=== PATIENT | female | born 1990 | race Caucasian/White ===

== ENCOUNTER 2022-06-05 09:32 | Emergency (ER) | payer OTHER ==
--- NOTE | 2022-06-05 10:16 | ERPHSYRPT ---
- History of Present Illness Time Seen by Provider: 06/05/22 10:10 Source: patient, family Exam Limitations: no limitations Patient Subjective Stated Complaint: Dizziness Triage Nursing Assessment: Patient ambulated back to ED and transferred self to bed. Patient A+O x3. Patient's skin pink, warm and dry. Patient states 45 min prior to coming to ED she was in the shower with her and felt fine. Patient states she looked up at her and started seeing flashes of white lights and got light headed and fell into his arms. Patient's states patient turned white and passed out into his arms and evacuated her bowels and gagged. stated when patient came to her speech was slurred and she was weaker on her left side. Patient complains of intermittent headache 08/29. Patient currently denies dizziness, N/V. Physician History: pt was in shower 10 minutes and then fainted - no vertigo or spinning, defecated after fainting. no seizure activity noted by who was right there. Did not hit head but her head feels funny and she initially had slurred speech but none now, and still feels foggy. Normal mental status in ER. No pronator drift. Normal facial expression, visual kerr intact fundi benign. No abd pain slight nausea. no vomiting. Abd soft nontender without mass or peritoneal sgns. 1 week late on period but this happens a lot for her. Chest clear . EKG nonspecific. No arrythmia - computer reported one PVC. Full ROM all extremities without pain. No sign of external trauma. No recent hosp or surgies, no Hx cancer, No blood thinners, No prior DVT or PE. No homronal therapy. Percs out. Additional independent Hx from who also brought home meds and relates recently restarted buspirone after one month off. Pt reports could be since is trying. No bleeding or Discharge. PMHx vertigo, but this was not like this at all. discussed risk/benefit of CT head and family and pt wish to proceed. Witnessed: by family Prior Episodes: single episode today Timing/Duration: today, sudden Precipitating Factors: blurred vision, confusion, lightheadedness, nausea Context: standing Loss of Consciousness: brief (seconds), dazed Charcter of event(s): collapsed, became unresponsive, incontinent urine/stool Allergies/Adverse Reactions: vancomycin Allergy (Severe, Verified 06/05/22 09:40) Itching severe headache Home Medications: Methylphenidate HCl [Concerta] 18 mg PO DAILY 05/05/15 [History] Buspirone HCl [Buspar] 10 mg PO QID 12/19/20 [History] Ergocalciferol (Vitamin D2) [Vitamin D] 50,000 unit PO WEEKLY 12/19/20 [History] PARoxetine HCL [Paroxetine HCl] 40 mg PO DAILY 12/19/20 [History] Spironolactone 100 mg PO DAILY 12/19/20 [History] clonazePAM [Klonopin] 1 mg PO DAILY PRN 12/19/20 [History] Hx Tetanus, Diphtheria Vaccination/Date Given: Yes Hx Influenza Vaccination/Date Given: Yes Hx Pneumococcal Vaccination/Date Given: No Immunizations Up to Date: Yes Travel Risk - International Travel Have you traveled outside of the country in past 3 weeks: No - Coronavirus Screening Are you exhibiting any of the following symptoms?: No Close contact with a COVID-19 positive Pt in past 14-21 Days: No - Vaccine Status Have you recieved a Covid-19 vaccination: Yes 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 - Vaccination Dates Date of 2cond Vaccination (if applicable): na - Past Medical History Pertinent Past Medical History: Yes Neurological History: No Pertinent History ENT History: No Pertinent History Cardiac History: No Pertinent History Respiratory History: No Pertinent History Endocrine Medical History: No Pertinent History Musculoskeletal History: No Pertinent History GI Medical History: Gallbladder Disease History: Other Psycho-Social History: Anxiety, Depression Female Reproductive Disorders: No Pertinent History Other Medical History: polycystic ovarian syndrome - Past Surgical History Past Surgical History: Yes Neuro Surgical History: No Pertinent History Cardiac: No Pertinent History Respiratory: No Pertinent History Gastrointestinal: Cholecystectomy Genitourinary: No Pertinent History Musculoskeletal: No Pertinent History Female Surgical History: Other Other Surgical History: breast reduction,sebaceous cystectomy of neck - Social History Smoking Status: Never smoker Exposure to second hand smoke: No Drug Use: none Patient Lives Alone: No - Female History Hx Last Menstrual Period: April Hx Now: No - Review of Systems Constitutional: No Fever, No Chills Eyes: No Symptoms Ears, Nose, & Throat: No Symptoms Respiratory: No Cough, No Dyspnea Cardiac: No Chest Pain, No Edema, No Syncope Abdominal/Gastrointestinal: No Abdominal Pain, No Nausea, No Vomiting, No Diarrhea Genitourinary Symptoms: No Dysuria Musculoskeletal: No Back Pain, No Neck Pain Skin: No Rash Neurological: Dizziness, Headache, No Focal Weakness, No Sensory Changes Psychological: No Symptoms Endocrine: No Symptoms Hematologic/Lymphatic: No Symptoms Immunological/Allergic: No Symptoms All Other Systems: Reviewed and Negative Physical Exam - Nursing Vital Signs Nursing Vital Signs: Initial Vital Signs Temperature 97.6 F 06/05/22 09:46 Pulse Rate 86 06/05/22 09:46 Respiratory Rate 18 06/05/22 09:46 Blood Pressure 136/98 06/05/22 09:46 O2 Sat by Pulse Oximetry 98 06/05/22 09:46 Pain Scale Pain Intensity 0 - Temperance Coma Scale Best Eye Response (Malcom): (4) open spontaneously Best Verbal Response (Malcom): (5) oriented Best Motor Response (Malcom): (6) obeys commands Malcom Total: 15 - Physical Exam General Appearance: no apparent distress, alert Eye Exam: bilateral eye: normal inspection, PERRL, EOMI Ears, Nose, Throat Exam: normal ENT inspection, TMs normal, pharynx normal, moist mucous membranes Neck Exam: normal inspection, non-tender, supple, full range of motion, No meningismus, No Brudzinski, No Kernig's, No JVD Respiratory: normal breath sounds, lungs clear, No chest tenderness, No respiratory distress Cardiovascular: regular rate/rhythm, capillary refill <2 sec, No murmur, No pulse deficit Gastrointestinal: soft, No tenderness, No distention, No mass Pelvic Exam: deferred Rectal Exam: deferred Back Exam: normal inspection, normal range of motion, No CVA tenderness, No vertebral tenderness Extremity Exam: normal inspection, normal range of motion, pelvis stable, No tenderness Peripheral Pulses: carotid (R): 2+, carotid (L): 2+, femoral (R): 2+, femoral (L): 2+, dorsalis-pedis (R): 2+, dorsalis-pedis (L): 2+ Mental Status: alert, oriented x 3, 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 Exam: normal speech, PERRL, No facial droop Coordination/Gait: normal finger to nose, normal gait Motor/Sensory: no motor deficit, no sensory deficit, no pronator drift DTR: bicep (R): 2+, bicep (L): 2+, tricep (R): 2+, tricep (L): 2+, knee (R): 2+, knee (L): 2+, ankle (R): 2+, ankle (L): 2+ Skin Exam: normal color, warm, dry, No rash SpO2 Interpretation: normal SpO2: 98 O2 Delivery: Room Air - Course Nursing assessment & vital signs reviewed: Yes EKG Interpreted by Me: NORMAL AXIS (PVC), NORMAL INTERVALS, Non-specific ST Changes - CT Exams Head CT Interpretation: Tele-radiologist Report, No/Intracranial Hemorrhag Ordered Tests: Active Orders 24 hr Category Date Time Status Unix Architect STAT Care 06/05/22 10:27 Active EKG-ER Only STAT Care 06/05/22 10:25 Active IV Insertion STAT Care 06/05/22 10:25 Active Orthostatic Vital Signs STAT Care 06/05/22 10:25 Active POCT Glucose Check STAT Care 06/05/22 10:25 Active HEAD WITHOUT CONTRAST [CT] Stat Exams 06/05/22 10:26 Taken CBC W DIFF Stat Lab 06/05/22 10:04 Completed CMP Stat Lab 06/05/22 10:04 Completed CULTURE,URINE Stat Lab 06/05/22 10:29 Received HCG QUALITATIVE,SERUM Stat Lab 06/05/22 10:04 Completed Lactic Acid Stat Lab 06/05/22 10:28 Completed TROPONIN Q4H Lab 06/05/22 10:04 Completed TROPONIN Q4H Lab 06/05/22 14:45 Ordered TROPONIN Q4H Lab 06/05/22 18:45 Ordered UA W/RFX UR CULTURE Stat Lab 06/05/22 10:29 Completed Medication Summary Discontinued Medications Generic Name Dose Route Start Last Admin Trade Name Freq PRN Reason Stop Dose Admin Sodium Chloride 1,000 mls @ 999 mls/hr 06/05/22 10:25 06/05/22 12:02 Sodium Chloride 0.9% 1000 Ml IV 06/05/22 11:25 Infused .Q1H1M STA Infusion Sodium Chloride Confirm 06/05/22 10:42 Sodium Chloride 0.9% 1000 Ml Administered 06/05/22 10:43 Dose 1,000 mls @ ud .ROUTE .STK-MED ONE Lab/Rad Data: Laboratory Result Diagrams 06/05/22 10:04 06/05/22 10:04 Laboratory Results 06/05/22 06/05/22 06/05/22 Range/Units 10:29 10:28 10:04 WBC (4.0-10.5) x10^3/uL RBC (4.1-5.4) x10^6/uL Hgb (12.0-16.0) g/dL Hct (35-47) % MCV (78-100) fL MCH (26-32) pg MCHC (32-36) g/dL RDW (11.5-14.0) % Plt Count (150-450) x10^3/uL MPV (7.5-11.0) fL Gran % (36.0-66.0) % Immature Gran % (Auto) (0.00-0.4) % Nucleat RBC Rel Count (0.00-0.1) % Eos # (Auto) (0-0.5) x10^3/uL Immature Gran # (Auto) (0.00-0.03) x10^3u/L Absolute Lymphs (auto) (1.0-4.6) x10^3/uL Absolute Monos (auto) (0.0-1.3) x10^3/uL Absolute Nucleated RBC (0.00-0.01) x10^3u/L Lymphocytes % (24.0-44.0) % Monocytes % (0.0-12.0) % Eosinophils % (0.00-5.0) % Basophils % (0.0-0.4) % Absolute Granulocytes (1.4-6.9) x10^3/uL Basophils # (0-0.4) x10^3/uL Sodium (137-145) mmol/L Potassium (3.5-5.1) mmol/L Chloride (98-107) mmol/L Carbon Dioxide (22-30) mmol/L Anion Gap (5-15) MEQ/L BUN (7-17) mg/dL Creatinine (0.52-1.04) mg/dL Estimated GFR ML/MIN Glucose (74-106) mg/dL Lactic Acid 1.2 (0.4-2.0) Calcium (8.4-10.2) mg/dL Total Bilirubin (0.2-1.3) mg/dL AST (14-36) U/L ALT (0-35) U/L Alkaline Phosphatase (38-126) U/L Troponin I < 0.012 (0.000-0.034) ng/mL Serum Total Protein (6.3-8.2) g/dL Albumin (3.5-5.0) g/dL Serum , Qual (Negative) Urine Color Dark Yellow A (Yellow) Urine Appearance Turbid A (Clear) Urine pH 5.0 (4.6-8.0) Ur Specific [place] 1.020 (1.005-1.030) Urine Protein 100 A (Negative) Urine Glucose (UA) Negative (Negative) mg/dL Urine Ketones Trace A (Negative) Urine Blood Negative (Negative) Urine Nitrite Negative (Negative) Urine Bilirubin Negative (Negative) Urine Urobilinogen 1.0 A (0.2) mg/dL Ur Leukocyte Esterase Negative (Negative) U Hyaline Cast (Auto) 3-5 A (0-2) /LPF Urine Microscopic RBC 3-5 (0-5) /HPF Urine Microscopic WBC 3-5 (0-5) /HPF Ur Epithelial Cells Many A (None Seen) /HPF Urine Bacteria Moderate A (None Seen) /HPF Urine Culture Reflexed YES (NO) 06/05/22 06/05/22 06/05/22 Range/Units 10:04 10:04 10:04 WBC 8.1 (4.0-10.5) x10^3/uL RBC 4.81 (4.1-5.4) x10^6/uL Hgb 13.2 (12.0-16.0) g/dL Hct 41.3 (35-47) % MCV 85.9 (78-100) fL MCH 27.4 (26-32) pg MCHC 32.0 (32-36) g/dL RDW 12.5 (11.5-14.0) % Plt Count 408 (150-450) x10^3/uL MPV 9.2 (7.5-11.0) fL Gran % 62.2 (36.0-66.0) % Immature Gran % (Auto) 0.4 (0.00-0.4) % Nucleat RBC Rel Count 0.0 (0.00-0.1) % Eos # (Auto) 0.15 (0-0.5) x10^3/uL Immature Gran # (Auto) 0.03 (0.00-0.03) x10^3u/L Absolute Lymphs (auto) 2.06 (1.0-4.6) x10^3/uL Absolute Monos (auto) 0.73 (0.0-1.3) x10^3/uL Absolute Nucleated RBC 0.00 (0.00-0.01) x10^3u/L Lymphocytes % 25.5 (24.0-44.0) % Monocytes % 9.0 (0.0-12.0) % Eosinophils % 1.9 (0.00-5.0) % Basophils % 1.0 (0.0-0.4) % Absolute Granulocytes 5.02 (1.4-6.9) x10^3/uL Basophils # 0.08 (0-0.4) x10^3/uL Sodium 139 (137-145) mmol/L Potassium 3.9 (3.5-5.1) mmol/L Chloride 110 H (98-107) mmol/L Carbon Dioxide 20 L (22-30) mmol/L Anion Gap 12.5 (5-15) MEQ/L BUN 8 (7-17) mg/dL Creatinine 0.59 (0.52-1.04) mg/dL Estimated GFR > 60.0 ML/MIN Glucose 100 (74-106) mg/dL Lactic Acid (0.4-2.0) Calcium 8.6 (8.4-10.2) mg/dL Total Bilirubin 0.40 (0.2-1.3) mg/dL AST 39 H (14-36) U/L ALT 41 H (0-35) U/L Alkaline Phosphatase 67 (38-126) U/L Troponin I (0.000-0.034) ng/mL Serum Total Protein 8.0 (6.3-8.2) g/dL Albumin 4.4 (3.5-5.0) g/dL Serum , Qual NEGATIVE (Negative) Urine Color (Yellow) Urine Appearance (Clear) Urine pH (4.6-8.0) Ur Specific [place] (1.005-1.030) Urine Protein (Negative) Urine Glucose (UA) (Negative) mg/dL Urine Ketones (Negative) Urine Blood (Negative) Urine Nitrite (Negative) Urine Bilirubin (Negative) Urine Urobilinogen (0.2) mg/dL Ur Leukocyte Esterase (Negative) U Hyaline Cast (Auto) (0-2) /LPF Urine Microscopic RBC (0-5) /HPF Urine Microscopic WBC (0-5) /HPF Ur Epithelial Cells (None Seen) /HPF Urine Bacteria (None Seen) /HPF Urine Culture Reflexed (NO) - Progress Progress: improved, re-examined Progress Note: 06/05/22 10:25 discussed risk/benefit for CT and pt and wish to proceed. 06/05/22 14:[address] head UA, CMT, CBC, HCG, Trops and EKG with pt and family and advised on f/u . Pt duane diet and has had no furhter symptoms. Pt is advised that we have not determined a cause for her syncope and that further eval with PMD is advised since undtected conditions could still be evolving and be potentially serious. They are comfortable and choose DC with outpt f/u rather than further eval in ER or admision at this time and have the capacity to make this choice. - Departure Departure Disposition: Home Clinical Impression: snycopal episode unknown cause, Elevated liver enzymes, Abnormal urine Condition: Good Critical Care Time: No Referrals: DOCTOR,NO FAMILY [NON-STAFF PHY W/O PRIVILEGES] - Follow up/PCP as directed Instructions: Dizziness, Nonvertigo, (DC), Syncope (Fainting) (DC), Vasovagal Response (DC) Additional Instructions: We have not determined a precise cause for your fainting episode , so it is best to followup with your Dr[place] for further checkout. Return meantime if any further symptoms of concern. Also see your Dr[place] for the slight elevation of the liver test and to recheck the urine which could be an early infection.
[2022-06-05] MEDS ORDERED: Sodium Chloride 0.9% 1000 ML 1,000 ML IV STA (10:25)
[2022-06-05 10:30] LABS: Absolute Neutrophil Ct (ANC) 5.02 x10^3/uL (1.4-6.9); Basophil (Absolute #) 0.08 x10^3/uL (0-0.4); Eosinophil % 1.9 % (0.00-5.0); Eosinophil (Absolute #) 0.15 x10^3/uL (0-0.5); Hematocrit 41.3 % (35-47); Hemoglobin 13.2 g/dL (12.0-16.0); Lymphocyte (Absolute #) 2.06 x10^3/uL (1.0-4.6); Lymphocytes % 25.5 % (24.0-44.0); Mean Cell Volume 85.9 fL (78-100); Mean Corpuscular Hemoglobin 27.4 pg (26-32); Mean Platelet Volume 9.2 fL (7.5-11.0); Monocyte (Absolute #) 0.73 x10^3/uL (0.0-1.3); Neutrophil % 62.2 % (36.0-66.0); Platelet Count 408 x10^3/uL (150-450); Red Blood Count 4.81 x10^6/uL (4.1-5.4); Red Cell Distribution Width 12.5 % (11.5-14.0); White Blood Count 8.1 x10^3/uL (4.0-10.5)
[2022-06-05] MEDS ORDERED: Sodium Chloride 0.9% 1000 ML 1,000 ML ONE (10:42)
[2022-06-05 10:55] LABS: ALBUMIN 4.4 g/dL (3.5-5.0); ALKALINE PHOSPHATASE 67 U/L (38-126); ANION GAP 12.5 MEQ/L (5-15); BLOOD UREA NITROGEN 8 mg/dL (7-17); CHLORIDE 110 mmol/L (98-107); Calcium 8.6 mg/dL (8.4-10.2); Carbon Dioxide 20 mmol/L (22-30); Creatinine 1 0.59 mg/dL (0.52-1.04); EST GLOMERULAR FILTRATION RATE > 60.0 ML/MIN; Glucose 100 mg/dL (74-106); Potassium 3.9 mmol/L (3.5-5.1); SGOT/AST 39 U/L (14-36); SGPT/ALT 41 U/L (0-35); SODIUM 139 mmol/L (137-145)
[2022-06-05 11:30] LABS: Appearance Turbid (Clear); Bacteria Moderate /HPF (None Seen); Bilirubin Negative (Negative); Blood Negative (Negative); Glucose, Urine Negative (Negative); Ketones Trace (Negative); Leukocyte Esterase Negative (Negative); Nitrite Negative (Negative); Protein,Urine Dip 100 (Negative)
[2022-06-05 11:31] LABS: Epithelial Cells Many /HPF (None Seen)
[2022-06-05 11:33] LABS: ADD URINE CULTURE? YES (NO)
[2022-06-05 13:38] VITALS: O2SAT 98
[2022-06-05 14:21] VITALS: BP 114/86; PULSE 72
--- NOTE | 2022-06-05 19:01 | XRAY ---
Indication: Acute mental status change. Headache. Left arm tingling, slurred speech, and syncope. Multiple contiguous axial images obtained through the head without contrast. Comparison: October 02, 2006 Normal appearing brain parenchyma, ventricles, and bony calvarium. Visualized paranasal sinuses and mastoid air cells are clear. Impression: Continued normal CT head without contrast exam. Comment: Preliminary interpretation made by [facility]. No critical discrepancy.
== END 2022-06-05 14:40 | disposition home or self-care (01) ==
LOC: ED 09:32
DX: R55 Syncope and collapse (principal); R74.8 Abnormal levels of other serum enzymes; R82.90 Unspecified abnormal findings in urine; R47.81 Slurred speech; Z79.899 Other long term (current) drug therapy
CPT/HCPCS: 36000; 36415; 70450; 80053; 81001; 83605; 84484; 84703; 85025; 87086; 93005; 93041; 96360; 99284